=== PATIENT | female | born 1960 | race Caucasian/White ===

== ENCOUNTER 2019-12-01 18:24 | Observation (INO) ==
[2019-12-01] MEDS ORDERED: ASPIRIN CHEW 324 MG PO STA (18:46)
[2019-12-01] MEDS: NITROGLYCERIN SL 0.4 MG/TAB TAB SL PRN ×3 (18:54→19:43)
[2019-12-01] MEDS ORDERED: SODIUM CHLORIDE 0.9% 1000ML 1,000 ML IV SCH (19:00)
[2019-12-01 19:06] LABS: Basophils # (auto) 0.01 K/uL (0-0.2); Basophils % (auto) 0.1 %; Eosinophils # (auto) 0.14 K/uL (0-0.5); Eosinophils % (auto) 2.1 %; Hematocrit (blood only) 42.6 % (37-47); Hemoglobin 14.1 g/dL (12.0-16.0); Immature Granulocytes # (auto) 0.02 K/uL (0.00-0.02); Immature Granulocytes % (auto) 0.3 %; Lymphocytes % (auto) 29.7 %; Mean Corpuscular Hemoglobin 28.8 pg (25-34); Mean Corpuscular Hgb Conc 33.1 g/dL (32-36); Mean Corpuscular Volume 87.1 fL (80-100); Mean Platelet Volume 11.2 fL (7.4-10.4); Monocytes # (auto) 0.48 K/uL (0.11-0.59); Monocytes % (auto) 7.1 %; Neutrophils # (auto) 4.08 K/uL (1.4-6.5); Neutrophils % (auto) 60.7 %; Platelet Count 135 K/uL (130-400); RDW Coefficient of Variation 13.2 % (11.5-14.5); RDW Standard Deviation 42.2 fL (36.4-46.3); Red Blood Count 4.89 M/uL (4.2-5.4); White Blood Count 6.73 K/uL (4.8-10.8)
--- NOTE | 2019-12-01 19:23 | XRay Report ---
XR chest 1V portable HISTORY: Atypical Chest Pain COMPARISON: None. FINDINGS: The lungs are clear. Cardiac silhouette is normal in size. No pleural effusions. No pneumot horax. IMPRESSION: No acute process. ACT 112: Negative or not required by law. Electronically signed by: Mina Rojo M.D. 12/01/2019 7:22 PM
[2019-12-01 19:46] LABS: INR 1.1 (0.9-1.1); Partial Thromboplastin Ratio 0.9; Partial Thromboplastin Time 23.3 Seconds (21.0-31.0); Prothrombin Time 10.8 Seconds (9.0-12.0)
[2019-12-01 19:55] LABS: Alanine Aminotransferase 22 U/L (12-78); Albumin Level 3.5 gm/dl (3.4-5.0); Aspartate Aminotransferase 17 U/L (15-37); BUN Creatinine Ratio 26.6 (10-20); Blood Urea Nitrogen 20 mg/dl (7-18); Calcium 9.2 mg/dl (8.5-10.1); Carbon Dioxide 27 mmol/L (21-32); Chloride 111 mmol/L (98-107); Creatinine Clr Calc Pharmacy 75.4 ml/min; Est GFR (African American) 101.8; Est GFR (Non-African American) 87.9; Glucose 92 mg/dl (70-99); Lipase 181 U/L (73-393); Potassium 3.5 mmol/L (3.5-5.1); Sodium 143 mmol/L (136-145)
[2019-12-01 20:00] LABS: Albumin Globulin Ratio 1.1 (0.9-2); Alkaline Phosphatase 83 U/L (45-117); Bilirubin,Total 0.3 mg/dl (0.2-1); Globulin 3.3 gm/dl (2.5-4.0); Total Protein 6.8 gm/dl (6.4-8.2); Troponin I < 0.015 ng/ml (0-0.045)
--- NOTE | 2019-12-01 20:49 | Emergency Department Note ---
Entered by Ale Mueller acting as a scribe for History of Present Illness General Chief complaint: Cardiac Assessment Stated complaint: CHEST PAIN Time Seen by Provider: 12/01/19 18:34 Source: patient History of Present Illness Onset (ago): hour(s) (this morning) Location: chest Pain Consistency: + other (episodes) Maximum Pain Intensity: 6 Quality: + stabbing Relieved By: not by medication (Aspirin) Exacerbated By: not by movement (moving left arm, positional changes) and not by other (exertion, breathing deeply) Associated symptoms: + denies other symptoms (vomiting, diaphoresis, fever, chills, leg swelling, coughs, abdominal pain, or leg pain) The patient is a 59 year old white female w/ with no significant PMHx who presents to the ED w/ CC of an episode of chest pain beginning around 0730 this morning when she was driving to work. The patient reports that the pain is located in her upper left chest, shoulder and neck. She states that the stabbing pain is intermittent. She notes that the pain is becoming more frequent since its onset. She endorses some nausea but denies any vomiting. She denies any sweating. She denies that the pain worsens with exertion, positional changes, deep breathing, or movement of the left arm. She denies any fever, chills, leg swelling, coughs, abdominal pain, or leg pain. She notes that she took an aspirin around 1400 without significant relief in her symptoms. She denies any recent overuse of her left arm. She denies any history of clots or any significant cardiopulmonary history. She denies any recent long travel or hospitalizations. The patient denies that any first degree relatives had an [place] prior to the age of 65 but notes that her father had a heart attack at 67. She denies taking any control or hormone replacements. Home Medications Home Medications Medication Instructions Recorded Confirmed Type aspirin [Aspir-Low] 81 mg PO DAILY 12/01/19 12/01/19 History cetirizine [Zyrtec] 10 mg PO DAILY 12/01/19 12/01/19 History hydroxyzine HCl 12.5 mg PO HS PRN 12/01/19 12/01/19 History montelukast [Singulair] 10 mg PO HS 12/01/19 12/01/19 History multivitamin 1 tab PO DAILY 12/01/19 12/01/19 History dwvqbakeg-dtgzzif-hwkmgt-manga 2 tab PO DAILY 12/01/19 12/01/19 History Allergies Allergy/AdvReac Type Severity Reaction Status Date / Time No Known Allergies Allergy Unverified 12/01/19 20:23 Past Med/Surg History Medical History No significant past medical history Family History Father Myocardial infarction Social History Preferred Language: Syriac Communication Ability: Effective Plug Stitcher Required: No Beliefs That Will Affect Care: None marital status: Current Living Situation: Spouse current occupational status: employed Other Information That Helps Us Care for You: No Feels Safe at Home: Yes Safety Concerns: Afraid for Self Smoking Status: Never smoker Hx Alcohol Use: No Hx Substance Use: No Review of Systems See HPI for pertinent positives & negatives. and A total of 10 systems reviewed and were otherwise negative Physical Exam Vital Signs Vital Signs - 24 hr 12/01/19 18:29 12/01/19 18:55 12/01/19 19:05 Temperature 36.7 C Temperature Source Oral Pulse Rate 88 Pulse Rate [Apical] 88 83 Pulse Rhythm [Apical] Regular Regular Respiratory Rate 20 14 16 Respiratory Effort / Characteristics Non-Labored Non-Labored Spontaneous Non-Labored Spontaneous Respiratory Depth Normal Normal Normal Respiratory Pattern Blood Pressure 179/113 H Blood Pressure [Right Arm] 164/105 H 148/86 H Blood Pressure Mean 135 Blood Pressure Mean [Right Arm] 124 106 Pulse Oximetry 100 97 97 Oxygen Delivery Method Room Air Room Air Room Air Sepsis Recent Fever Within 48 Hours No Sepsis Action Taken by Nursing No Action Required 12/01/19 19:39 12/01/19 19:43 12/01/19 20:39 Temperature Temperature Source Pulse Rate Pulse Rate [Apical] 79 82 88 Pulse Rhythm [Apical] Regular Regular Regular Respiratory Rate 14 14 16 Respiratory Effort / Characteristics Non-Labored Spontaneous Non-Labored Spontaneous Non-Labored Spontaneous Respiratory Depth Normal Normal Normal Respiratory Pattern Regular Blood Pressure Blood Pressure [Right Arm] 158/92 H 141/91 H 144/94 H Blood Pressure Mean Blood Pressure Mean [Right Arm] 114 107 110 Pulse Oximetry 99 97 97 Oxygen Delivery Method Room Air Room Air Room Air Sepsis Recent Fever Within 48 Hours Sepsis Action Taken by Nursing 12/01/19 21:01 Temperature Temperature Source Pulse Rate Pulse Rate [Apical] 79 Pulse Rhythm [Apical] Regular Respiratory Rate 16 Respiratory Effort / Characteristics Non-Labored Spontaneous Respiratory Depth Normal Respiratory Pattern Regular Blood Pressure Blood Pressure [Right Arm] 157/93 H Blood Pressure Mean Blood Pressure Mean [Right Arm] 114 Pulse Oximetry 99 Oxygen Delivery Method Room Air Sepsis Recent Fever Within 48 Hours Sepsis Action Taken by Nursing GENERAL: Well appearing, well nourished, NAD, non-toxic. EYE EXAM: Normal conjunctiva. PERRL, no anisocoria and EOM's grossly intact w/o pain. OROPHARYNX: Moist mucous membranes. Grossly normal dentition. NECK: Supple, no nuchal rigidity, no adenopathy, non-tender. No signs of meningismus. LUNGS: Clear to auscultation. Normal chest wall mechanics. HEART: NSR, no MRG. CHEST: Mild reproducible left upper chest discomfort. ABDOMEN: Abdomen soft, non-tender, normo-active bowel sounds, no masses, no rebound or guarding. SKIN: No rashes and no bruising. UPPER EXTREMITIES: Upper extremities are grossly normal. No pain with ROM of left shouder. LOWER EXTREMITIES: No pitting edema. No calf pain. Negative Josy's sign. NEURO EXAM: A&O x3, cranial nerves II-XII grossly intact, normal speech, moves all 4 extremities on command w/o issue. Course Course 1840:The patient was evaluated in room B11B. A complete history and physical examination was performed. 1844: Continuous Cardiac Monitoring: An order was placed for continuous cardiac monitoring. The monitor shows a rate of 88 with normal sinus rhythm. 1945: Patients ED nursing team reports that the patients chest pain has improved with nitro. 2011: I updated the patient on her current lab and imaging results. We had a long conversation regarding admission for cardiac observation. Family will discuss options. Administered Medications Acetaminophen (Tylenol) 650 mg PO Q4H PRN PRN Reason: Pain or Fever Stop: 01/01/20 04:24 Last Admin: 12/02/19 08:25 Dose: 650 mg Documented by: [id number] Admin: 12/02/19 04:56 Dose: 650 mg Documented by: [id number] Amlodipine Besylate (Norvasc) 2.5 mg PO QAM [facility] Stop: 01/01/20 08:59 Last Admin: 12/02/19 08:54 Dose: 2.5 mg Documented by: [id number] Aspirin (Ecotrin Ectab) 81 mg PO DAILY [facility] Stop: 01/01/20 08:59 Last Admin: 12/02/19 07:41 Dose: Not Given Documented by: [id number] Cetirizine HCl (Zyrtec) 10 mg PO DAILY [facility] Stop: 01/01/20 08:59 Last Admin: 12/02/19 07:42 Dose: Not Given Documented by: [id number] Enoxaparin Sodium (Lovenox) 40 mg SQ QAM [facility] Stop: 01/01/20 08:59 Last Admin: 12/02/19 07:42 Dose: 40 mg Documented by: [id number] Potassium Chloride/Sodium Chloride (1/2 Nss + 20meq Kcl 1000ml) 20 meq in 1,000 mls @ 50 mls/hr IV .Q20H ONE Stop: 12/02/19 18:52 Last Admin: 12/02/19 00:03 Dose: 50 mls/hr Documented by: [id number] Montelukast Sodium (Singulair) 10 mg PO HS [facility] Stop: 12/31/19 22:52 Last Admin: 12/01/19 23:59 Dose: 10 mg Documented by: [id number] Multivitamins (Multivitamin Tab) 1 tab PO DAILY [facility] Stop: 01/01/20 08:59 Last Admin: 12/02/19 07:42 Dose: Not Given Documented by: [id number] Tramadol HCl (Ultram) 25 - 50 mg PO Q4H PRN PRN Reason: Pain Stop: 12/31/19 22:52 Last Admin: 12/01/19 23:59 Dose: 25 mg Documented by: [id number] Discontinued Medications Acetaminophen (Tylenol) 650 mg PO NOW STA Stop: 12/01/19 21:28 Last Admin: 12/01/19 22:54 Dose: Not Given Documented by: [id number] Acetaminophen (Tylenol) Confirm Administered Dose 650 mg .ROUTE .STK-MED ONE Stop: 12/01/19 21:47 Last Admin: 12/01/19 21:48 Dose: 650 mg Documented by: [id number] Aspirin (Aspirin) 324 mg PO NOW STA Stop: 12/01/19 18:47 Last Admin: 12/01/19 18:54 Dose: 324 mg Documented by: [id number] Sodium Chloride (Nss 1000ml) 1,000 mls @ 999 mls/hr IV .Q1H1M PAWEL Stop: 12/01/19 20:00 Last Infusion: 12/01/19 20:39 Dose: 0 mls/hr Documented by: [id number] Admin: 12/01/19 18:55 Dose: 999 mls/hr Documented by: [id number] Lisinopril (Zestril) 2.5 mg PO ONE ONE Stop: 12/01/19 21:00 Last Admin: 12/01/19 23:37 Dose: Not Given Documented by: [id number] Nitroglycerin (Nitrostat) 0.4 mg SL UD PRN PRN Reason: Chest Pain Stop: 12/31/19 18:45 Last Admin: 12/01/19 19:43 Dose: 0.4 mg Documented by: [id number] Admin: 12/01/19 19:38 Dose: 0.4 mg Documented by: [id number] Admin: 12/01/19 18:54 Dose: 0.4 mg Documented by: [id number] Medical Decision Making Differential Diagnosis Differential diagnoses includes but is not limited to acute coronary syndrome, myocardial infarction, pericarditis, pulmonary embolus, aortic dissection, pneumonia, pneumothorax, musculoskeletal, shingles, esophageal. Medical Records Attestation: I reviewed the patient's medical records. Home Medications Current Medication List: was personally reviewed by me Laboratory Data Attestation: I reviewed the patient's lab results. Result diagrams: 12/02/19 04:35 12/02/19 04:35 Lab Results 12/01/19 12/01/19 12/01/19 Range/Units 19:26 19:26 19:26 PT 10.8 (9.0-12.0) Seconds INR 1.1 (0.9-1.1) APTT 23.3 (21.0-31.0) Seconds PTT Ratio 0.9 Sodium 143 (136-145) mmol/L Potassium 3.5 (3.5-5.1) mmol/L Chloride 111 H (98-107) mmol/L Carbon Dioxide 27 (21-32) mmol/L Anion Gap 5.0 (3-11) BUN 20 H (7-18) mg/dl Creatinine 0.75 (0.6-1.2) mg/dl Est Cr Clr Drug Dosing 75.4 ml/min Est GFR ( Amer) 101.8 Est GFR (Non-Af Amer) 87.9 BUN/Creatinine Ratio 26.6 H (10-20) Glucose 92 (70-99) mg/dl Calcium 9.2 (8.5-10.1) mg/dl Total Bilirubin 0.3 (0.2-1) mg/dl AST 17 (15-37) U/L ALT 22 (12-78) U/L Alkaline Phosphatase 83 (45-117) U/L Troponin I < 0.015 (0-0.045) ng/ml Total Protein 6.8 (6.4-8.2) gm/dl Albumin 3.5 (3.4-5.0) gm/dl Globulin 3.3 (2.5-4.0) gm/dl Albumin/Globulin Ratio 1.1 (0.9-2) Lipase 181 (73-393) U/L TSH 5.960 H (0.300-4.500) uIu/ml Free T4 1.09 (0.8-1.6) ng/dl Imaging Data Radiologist's Impression: Radiology results as stated below per my review and the radiologist's interpretation: XR chest 1V portable HISTORY: Atypical Chest Pain COMPARISON: None. FINDINGS: The lungs are clear. Cardiac silhouette is normal in size. No pleural effusions. No pneumothorax. IMPRESSION: No acute process. ACT 112: Negative or not required by law. Electronically signed by: Mina Rojo M.D. 12/01/2019 7:22 PM ECG Data Attestation: I personally reviewed and interpreted this ECG as follows: Indication: + chest pain Rate (beats per minute): 85 ECG Intervals/blocks: + Normal QRS, + Normal QT and + Normal VA ECG [place]: + Normal ECG ST segments: no ST depression and no ST elevation Blood Pressure Blood Pressure Findings: Elevated blood pressure Blood Pressure Disposition: Referred to patients primary care provider MDM Narrative The patient is a 59 year old white female w/ with no significant PMHx who presents to the ED w/ CC of an episode of chest pain beginning around 0730 this morning when she was driving to work. Patient was seen and evaluated the bedside. The patient was complaining of some left-sided chest pain that did radiate to her arm and jaw. Occasional nausea. No diaphoresis or vomiting. The patient does have family history of heart attack in her father at age 67. Patient does take a baby aspirin. Patient did take this morning. The patient was given nitro and aspirin. Patient did have improvement of her pain with nitro. She did receive several more. Patient's history and physical exam not consistent with aneurysm or dissection. Chest is clear. Patient's blood work is fairly unremarkable troponin is nondetectable. I did offer admission for observation and continuing to trend her cardiac enzymes versus very close outpatient referral. The patient agreed with observation and continue to trend her enzymes. I did speak the on-call hospitalist agreed to further evaluate treat the patient. Patient was admitted to medicine service. Impression & Plan Atypical chest pain Discharge Plan Visit Data *Final* Discharge Date/Time: 12/01/19 22:29 Chief Complaint: Cardiac Assessment Stated Complaint: CHEST PAIN ED Provider: Yoav Soriano Discharge Problem: Atypical chest pain Patient Disposition: Admitted As Inpatient Discharge Instructions Interventions: ED Discharge Assessment Last Done: 12/01/19 22:29 The john's documentation has been prepared under my direction and personally reviewed by me in its entirety. I confirm that the note above accurately reflects all work, treatment, procedures, and medical decision making performed by me.
[2019-12-01] MEDS ORDERED: ACETAMINOPHEN 325 MG TAB PO STA (21:27)
--- NOTE | 2019-12-01 21:28 | History & Physical Report ---
Date of Service December 01, 2019 Assessment & Plan (1) Chest pain: Likely musculoskeletal given reproducibility Situational hypertension Hypothyroidism, TSH slightly elevated OBS PCU Analgesia Follow troponin, TTE Monitor BP, initiate lisinopril if with persistent BP elevation and/or evidence of chronic BP elevation on TTE DVT prophylaxis Lovenox subcu Full code History of Present Illness Chief Complaint: Chest pain Primary Care Provider: KWADWO Fritz History obtained from patient, family, and records. Medical history significant for hypothyroidism. Patient woke up this morning with left-sided chest pain going to her shoulder and neck, described as sharp. Some shortness of breath, no cough. No rash, fever, chills. No recollection of unusual exertion, recent trauma. No unusual stress at home. Relief of discomfort after aspirin and nitroglycerin administration at the ER. Medical History as above Surgical History : Partial hysterectomy Family History : Heart disease Personal/Social history : Non-smoker, no EtOH intake, hairdresser Allergies Allergy/AdvReac Type Severity Reaction Status Date / Time No Known Allergies Allergy Unverified 12/01/19 20:23 Home Medications Home Medications Medication Instructions Recorded Confirmed Type aspirin [Aspir-Low] 81 mg PO DAILY 12/01/19 12/01/19 History cetirizine [Zyrtec] 10 mg PO DAILY 12/01/19 12/01/19 History hydroxyzine HCl 12.5 mg PO HS PRN 12/01/19 12/01/19 History montelukast [Singulair] 10 mg PO HS 12/01/19 12/01/19 History multivitamin 1 tab PO DAILY 12/01/19 12/01/19 History jeznbhpfk-qxsjvlu-dkifhj-manga 2 tab PO DAILY 12/01/19 12/01/19 History Past Med/Surg History Medical History No significant past medical history Family History Father Myocardial infarction Social History Preferred Language: Maori Communication Ability: Effective Riveter 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 Beliefs That Will Affect Care: None marital status: Current Living Situation: Spouse current occupational status: employed Other Information That Helps Us Care for You: No Feels Safe at Home: Yes Safety Concerns: Afraid for Self Smoking Status: Never smoker Hx Alcohol Use: No Hx Substance Use: No Review of Systems Review of Systems: As per HPI, all 10 systems reviewed, all other ROS negative Physical Exam Physical Exam: GENERAL: Comfortable, slightly anxious, pleasant, obese, no respiratory distress SKIN: Normal color, warm HEENT: [place] palpebral conjunctivae, no ptosis, dry buccal mucosa NECK : Supple, short neck, no tenderness CHEST : CTA, left-sided chest wall tenderness HEART : RRR, no obvious murmurs ABDOMEN: Some distention, nontender EXTREMITIES : Bilateral LE swelling (chronic), no tenderness, no other conspicuous deformities noted NEUROLOGIC : Coherent, no facial asymmetry, no other gross focality Results & Data Vital Signs (Past 12 Hours) Vital Signs Temp Pulse Pulse Resp BP BP Pulse Ox 12/01/19 21:01 79 16 157/93 H 99 12/01/19 20:39 88 16 144/94 H 97 12/01/19 19:43 82 14 141/91 H 97 12/01/19 19:39 79 14 158/92 H 99 12/01/19 19:05 83 16 148/86 H 97 12/01/19 18:55 88 14 164/105 H 97 12/01/19 18:29 36.7 C 88 20 179/113 H 100 Laboratory Results Laboratory Results WBC 6.73 K/uL (4.8-10.8) 12/01/19 Unknown RBC 4.89 M/uL (4.2-5.4) 12/01/19 Unknown Hgb 14.1 g/dL (12.0-16.0) 12/01/19 Unknown Hct 42.6 % (37-47) 12/01/19 Unknown MCV 87.1 fL (80-100) 12/01/19 Unknown MCH 28.8 pg (25-34) 12/01/19 Unknown MCHC 33.1 g/dL (32-36) 12/01/19 Unknown RDW Std Deviation 42.2 fL (36.4-46.3) 12/01/19 Unknown RDW Coeff of Kirill 13.2 % (11.5-14.5) 12/01/19 Unknown Plt Count 135 K/uL (130-400) 12/01/19 Unknown MPV 11.2 fL (7.4-10.4) H 12/01/19 Unknown Immature Gran % (Auto) 0.3 % 12/01/19 Unknown Neut % (Auto) 60.7 % 12/01/19 Unknown Lymph % (Auto) 29.7 % 12/01/19 Unknown [place] % (Auto) 7.1 % 12/01/19 Unknown Eos % (Auto) 2.1 % 12/01/19 Unknown Baso % (Auto) 0.1 % 12/01/19 Unknown Immature Gran # (Auto) 0.02 K/uL (0.00-0.02) 12/01/19 Unknown Neut # (Auto) 4.08 K/uL (1.4-6.5) 12/01/19 Unknown Lymph # (Auto) 2.00 K/uL (1.2-3.4) 12/01/19 Unknown [place] # (Auto) 0.48 K/uL (0.11-0.59) 12/01/19 Unknown Eos # (Auto) 0.14 K/uL (0-0.5) 12/01/19 Unknown Baso # (Auto) 0.01 K/uL (0-0.2) 12/01/19 Unknown PT Cancelled 12/01/19 Unknown INR Cancelled 12/01/19 Unknown APTT Cancelled 12/01/19 Unknown PTT Ratio Cancelled 12/01/19 Unknown Sodium Cancelled 12/01/19 Unknown Potassium Cancelled 12/01/19 Unknown Chloride Cancelled 12/01/19 Unknown Carbon Dioxide Cancelled 12/01/19 Unknown Anion Gap Cancelled 12/01/19 Unknown BUN Cancelled 12/01/19 Unknown Creatinine Cancelled 12/01/19 Unknown Est Cr Clr Drug Dosing Cancelled 12/01/19 Unknown Est GFR ( Amer) Cancelled 12/01/19 Unknown Est GFR (Non-Af Amer) Cancelled 12/01/19 Unknown BUN/Creatinine Ratio Cancelled 12/01/19 Unknown Glucose Cancelled 12/01/19 Unknown Calcium Cancelled 12/01/19 Unknown Total Bilirubin Cancelled 12/01/19 Unknown AST Cancelled 12/01/19 Unknown ALT Cancelled 12/01/19 Unknown Alkaline Phosphatase Cancelled 12/01/19 Unknown Troponin I Cancelled 12/01/19 Unknown Total Protein Cancelled 12/01/19 Unknown Albumin Cancelled 12/01/19 Unknown Globulin Cancelled 12/01/19 Unknown Albumin/Globulin Ratio Cancelled 12/01/19 Unknown Lipase Cancelled 12/01/19 Unknown Diagnostic Findings Chest x-ray : No acute process EKG as per my interpretation : Rate 85, NSR, normal axis, incomplete RBBB, T wave flattening anteroseptal leads
[2019-12-01] MEDS ORDERED: ACETAMINOPHEN 325 MG TAB ONE (21:46)
[2019-12-01 22:13] LABS: Thyroid Stimulating Hormone 5.96 uIu/ml (0.300-4.500)
[2019-12-01 22:26] LABS: T4 Free Thyroxine 1.09 ng/dl (0.8-1.6)
[2019-12-01] MEDS ORDERED: TRAMADOL HCL 50 MG TABLET PO PRN (22:53)
[2019-12-01] MEDS ORDERED: MoRPHine SULFATE 4 MG/ML 1 ML CARP\\VIAL IV PRN (22:53)
[2019-12-01] MEDS ORDERED: NITROGLYCERIN SL 0.4 MG/TAB TAB SL PRN (22:53)
[2019-12-01] MEDS ORDERED: SODIUM CHLOR 0.45% + 20MEQ KCL 20 MEQ/1,000 ML BAG IV ONE (22:53)
[2019-12-01] MEDS ORDERED: PROMETHAZINE HCL 12.5 MG in SODIUM CHLORIDE 0.9% 50 ML IV PRN (22:53)
[2019-12-01] MEDS ORDERED: LORazepam 0.25 MG/0.5 ML VIAL IV PRN (22:53)
[2019-12-01] MEDS ORDERED: MONTELUKAST SODIUM 10 MG TABLET PO SCH (22:53)
[2019-12-02 04:53] LABS: Basophils # (auto) 0.01 K/uL (0-0.2); Basophils % (auto) 0.2 %; Eosinophils # (auto) 0.15 K/uL (0-0.5); Eosinophils % (auto) 2.7 %; Hemoglobin 12.3 g/dL (12.0-16.0); Immature Granulocytes # (auto) 0.01 K/uL (0.00-0.02); Immature Granulocytes % (auto) 0.2 %; Lymphocytes # (auto) 2.25 K/uL (1.2-3.4); Lymphocytes % (auto) 40.8 %; Mean Corpuscular Hemoglobin 29.1 pg (25-34); Mean Corpuscular Hgb Conc 33.2 g/dL (32-36); Mean Corpuscular Volume 87.5 fL (80-100); Mean Platelet Volume 10.1 fL (7.4-10.4); Monocytes # (auto) 0.39 K/uL (0.11-0.59); Monocytes % (auto) 7.1 %; Platelet Count 179 K/uL (130-400); RDW Coefficient of Variation 13.3 % (11.5-14.5); RDW Standard Deviation 42.9 fL (36.4-46.3); Red Blood Count 4.23 M/uL (4.2-5.4); White Blood Count 5.51 K/uL (4.8-10.8)
[2019-12-02] MEDS: ACETAMINOPHEN 325 MG TAB PO PRN ×2 (04:56→08:25)
[2019-12-02 05:03] LABS: BUN Creatinine Ratio 23.6 (10-20); Blood Urea Nitrogen 17 mg/dl (7-18); Calcium 8.3 mg/dl (8.5-10.1); Carbon Dioxide 28 mmol/L (21-32); Chloride 112 mmol/L (98-107); Creatinine Clr Calc Pharmacy 78.6 ml/min; Est GFR (Non-African American) 92.3; Glucose 83 mg/dl (70-99); Potassium 3.9 mmol/L (3.5-5.1); Sodium 143 mmol/L (136-145)
[2019-12-02 05:08] LABS: Chol HDL Ratio 3; Cholesterol 148 mg/dl (0-200); HDL Cholesterol 53 mg/dl; LDL Cholesterol Calculated 79 mg/dl; Triglycerides 80 mg/dl (0-150); Troponin I < 0.015 ng/ml (0-0.045); VLDL Cholesterol 16 mg/dl
[2019-12-02] MEDS ORDERED: AMLODIPINE BESYLATE 5 MG TAB PO SCH ×2 (09:00→16:45)
[2019-12-02] MEDS ORDERED: CETIRIZINE HCL 10 MG TABLET PO SCH (09:00)
[2019-12-02] MEDS ORDERED: ENOXAPARIN INJ 40 MG/0.4 ML SYR SQ SCH (09:00)
[2019-12-02] MEDS ORDERED: MULTIVITAMIN TAB PO SCH (09:00)
[2019-12-02] MEDS ORDERED: ASPIRIN 81 MG ECTAB PO SCH (09:00)
[2019-12-02 11:21] LABS: D Dimer 190 ug/L FEU (0-500)
--- NOTE | 2019-12-02 16:28 | Hospitalist Progress Note ---
Date of Service December 02, 2019 Assessment & Plan (1) Chest pain: Likely musculoskeletal etiology --Troponins x3 EKG no signs of acute infarct or ischemia Echocardiogram no segmental wall motion abnormalities in the left ventricle, normal LV systolic function EF 55 to 60%, with 1 diastolic dysfunction, no significant valvular pathology --Chest pain resolved Chest pain reproducible per admitting physician --Advised not to perform any strenuous activities or lifting until follow-up with primary care physician this week Hypertension --Admitted with elevated blood pressure up to 179/113 Patient given amlodipine total of 5 mg, pressure improving to 135/82 --- Continue amlodipine 5 mg daily Monitor blood pressure as an outpatient Elevated TSH --TSH 5.9, free T4 1.09 --Repeat thyroid function tests in 4 to 6 weeks Case discussed in detail and at length with patient and her significant other All questions were answered Patient advised to follow-up with primary care physician next week for reevaluation They are understanding, comfortable, agreeable with the plan of care Subjective Follow-up for chest pain Seen resting in bed, comfortable, not in distress States she has chest pain has resolved Improved with Tylenol Denies dizziness, headache, shortness of breath, palpitations, nausea, sweating No other symptoms Reevaluated in the afternoon Remains comfortable, states she feels fine States she is ready for discharge Review of Systems Review of Systems: All systems reviewed & are unremarkable except as noted in HPI & below Physical Exam Physical Exam: General- oriented x 3, not in distress, speaks in sentences with no effort or accessory muscle use Head- atraumatic Eyes- PERRL, EOMI, anicteric ENT- oropharynx clear Neck- supple, no JVD, no adenopathy, no thyromegaly; carotids +2/2, no bruits appreciated Lungs- clear to auscultation bilaterally, no rales/wheezes Heart- normal rate, regular rhythm; no murmur, no gallop, no rub appreciated Left chest wall nontender to palpation Abdomen- normal bowel sounds, nondistended, soft, nontender, no masses or hepatosplenomegaly Extremities- no pretibial edema, no calf tenderness; peripheral pulses intact Neuro- alert, oriented x 3; CN 2-12 grossly intact; motor 5/5 bilaterally;sensation 100% on all extremities; no other gross focal neurologic deficits Skin- warm & dry Results & Data ([facility]) Vital Signs (Past 12 Hours) Vital Signs Temp Pulse Pulse Resp BP BP Pulse Ox 12/02/19 15:46 36.6 C 72 20 155/95 H 97 12/02/19 11:34 36.7 C 72 18 144/89 H 98 12/02/19 08:03 36.5 C 73 18 157/90 H 97 12/02/19 05:07 36.7 C 66 18 135/82 96 Laboratory Results Laboratory Results - last 24 hr 12/01/19 12/01/19 12/01/19 19:26 19:26 19:26 WBC RBC Hgb Hct MCV MCH MCHC RDW Std Deviation RDW Coeff of Kirill Plt Count MPV Immature Gran % (Auto) Neut % (Auto) Lymph % (Auto) [place] % (Auto) Eos % (Auto) Baso % (Auto) Immature Gran # (Auto) Neut # (Auto) Lymph # (Auto) [place] # (Auto) Eos # (Auto) Baso # (Auto) PT 10.8 INR 1.1 APTT 23.3 PTT Ratio 0.9 D-Dimer Sodium 143 Potassium 3.5 Chloride 111 H Carbon Dioxide 27 Anion Gap 5.0 BUN 20 H Creatinine 0.75 Est Cr Clr Drug Dosing 75.4 Est GFR ( Amer) 101.8 Est GFR (Non-Af Amer) 87.9 BUN/Creatinine Ratio 26.6 H Glucose 92 Calcium 9.2 Total Bilirubin 0.3 AST 17 ALT 22 Alkaline Phosphatase 83 Troponin I < 0.015 Total Protein 6.8 Albumin 3.5 Globulin 3.3 Albumin/Globulin Ratio 1.1 Triglycerides Cholesterol LDL Cholesterol, Calc VLDL Cholesterol, Calc HDL Cholesterol Cholesterol/HDL Ratio Lipase 181 TSH 5.960 H Free T4 1.09 12/01/19 12/01/19 12/01/19 22:58 Unknown Unknown WBC 6.73 RBC 4.89 Hgb 14.1 Hct 42.6 MCV 87.1 MCH 28.8 MCHC 33.1 RDW Std Deviation 42.2 RDW Coeff of Kirill 13.2 Plt Count 135 MPV 11.2 H Immature Gran % (Auto) 0.3 Neut % (Auto) 60.7 Lymph % (Auto) 29.7 [place] % (Auto) 7.1 Eos % (Auto) 2.1 Baso % (Auto) 0.1 Immature Gran # (Auto) 0.02 Neut # (Auto) 4.08 Lymph # (Auto) 2.00 [place] # (Auto) 0.48 Eos # (Auto) 0.14 Baso # (Auto) 0.01 PT Cancelled INR Cancelled APTT Cancelled PTT Ratio Cancelled D-Dimer Sodium Potassium Chloride Carbon Dioxide Anion Gap BUN Creatinine Est Cr Clr Drug Dosing Est GFR ( Amer) Est GFR (Non-Af Amer) BUN/Creatinine Ratio Glucose Calcium Total Bilirubin AST ALT Alkaline Phosphatase Troponin I < 0.015 Total Protein Albumin Globulin Albumin/Globulin Ratio Triglycerides Cholesterol LDL Cholesterol, Calc VLDL Cholesterol, Calc HDL Cholesterol Cholesterol/HDL Ratio Lipase TSH Free T4 12/01/19 12/02/19 12/02/19 Unknown 04:35 04:35 WBC 5.51 RBC 4.23 Hgb 12.3 Hct 37.0 MCV 87.5 MCH 29.1 MCHC 33.2 RDW Std Deviation 42.9 RDW Coeff of Kirill 13.3 Plt Count 179 MPV 10.1 Immature Gran % (Auto) 0.2 Neut % (Auto) 49.0 Lymph % (Auto) 40.8 [place] % (Auto) 7.1 Eos % (Auto) 2.7 Baso % (Auto) 0.2 Immature Gran # (Auto) 0.01 Neut # (Auto) 2.70 Lymph # (Auto) 2.25 [place] # (Auto) 0.39 Eos # (Auto) 0.15 Baso # (Auto) 0.01 PT INR APTT PTT Ratio D-Dimer Sodium Cancelled 143 Potassium Cancelled 3.9 Chloride Cancelled 112 H Carbon Dioxide Cancelled 28 Anion Gap Cancelled 3.0 BUN Cancelled 17 Creatinine Cancelled 0.72 Est Cr Clr Drug Dosing Cancelled 78.6 Est GFR ( Amer) Cancelled 107.0 Est GFR (Non-Af Amer) Cancelled 92.3 BUN/Creatinine Ratio Cancelled 23.6 H Glucose Cancelled 83 Calcium Cancelled 8.3 L Total Bilirubin Cancelled AST Cancelled ALT Cancelled Alkaline Phosphatase Cancelled Troponin I Cancelled < 0.015 Total Protein Cancelled Albumin Cancelled Globulin Cancelled Albumin/Globulin Ratio Cancelled Triglycerides 80 Cholesterol 148 LDL Cholesterol, Calc 79 VLDL Cholesterol, Calc 16 HDL Cholesterol 53 Cholesterol/HDL Ratio 3 Lipase Cancelled TSH Free T4 12/02/19 10:56 WBC RBC Hgb Hct MCV MCH MCHC RDW Std Deviation RDW Coeff of Kirill Plt Count MPV Immature Gran % (Auto) Neut % (Auto) Lymph % (Auto) [place] % (Auto) Eos % (Auto) Baso % (Auto) Immature Gran # (Auto) Neut # (Auto) Lymph # (Auto) [place] # (Auto) Eos # (Auto) Baso # (Auto) PT INR APTT PTT Ratio D-Dimer 190 Sodium Potassium Chloride Carbon Dioxide Anion Gap BUN Creatinine Est Cr Clr Drug Dosing Est GFR ( Amer) Est GFR (Non-Af Amer) BUN/Creatinine Ratio Glucose Calcium Total Bilirubin AST ALT Alkaline Phosphatase Troponin I Total Protein Albumin Globulin Albumin/Globulin Ratio Triglycerides Cholesterol LDL Cholesterol, Calc VLDL Cholesterol, Calc HDL Cholesterol Cholesterol/HDL Ratio Lipase TSH Free T4
[2019-12-02] MEDS ORDERED: AMLODIPINE BESYLATE 5 MG TAB PO ONE (16:45)
--- NOTE | 2019-12-02 17:17 | Electrocardiogram Report ---
Test Reason : Blood Pressure : / mmHG Vent. Rate : 085 BPM Atrial Rate : 085 BPM P-R Int : 168 ms QRS Dur : 080 ms QT Int : 362 ms P-R-T Axes : 072 031 057 degrees QTc Int : 430 ms Normal sinus rhythm Low voltage QRS Borderline ECG No previous ECGs available Confirmed by Stanley Bonilla ([id number]) on 12/02/2019 5:17:02 PM Referred By: REFERRED SELF Confirmed By:Pieter Bonilla
--- NOTE | 2019-12-02 17:24 | Electrocardiogram Report ---
Test Reason : Blood Pressure : / mmHG Vent. Rate : 066 BPM Atrial Rate : 066 BPM P-R Int : 174 ms QRS Dur : 080 ms QT Int : 402 ms P-R-T Axes : 064 026 047 degrees QTc Int : 421 ms Normal sinus rhythm Normal ECG When compared with ECG of 01-DEC-2019 18:39, (unconfirmed) No significant change was found Confirmed by Stanley Bonilla ([id number]) on 12/02/2019 5:23:54 PM Referred By: REFERRED SELF Confirmed By:Pieter Bonilla
--- NOTE | 2019-12-02 19:09 | Discharge Summary ---
Date of Service December 02, 2019 Admission HPI Per Admitting Provider History obtained from patient, family, and records. Medical history significant for hypothyroidism. Patient woke up this morning with left-sided chest pain going to her shoulder and neck, described as sharp. Some shortness of breath, no cough. No rash, fever, chills. No recollection of unusual exertion, recent trauma. No unusual stress at home. Relief of discomfort after aspirin and nitroglycerin administration at the ER. Medical History as above Surgical History : Partial hysterectomy Family History : Heart disease Personal/Social history : Non-smoker, no EtOH intake, hairdresser Admission Exam Per Admitting Provider GENERAL: Comfortable, slightly anxious, pleasant, obese, no respiratory distress SKIN: Normal color, warm HEENT: [place] palpebral conjunctivae, no ptosis, dry buccal mucosa NECK : Supple, short neck, no tenderness CHEST : CTA, left-sided chest wall tenderness HEART : RRR, no obvious murmurs ABDOMEN: Some distention, nontender EXTREMITIES : Bilateral LE swelling (chronic), no tenderness, no other conspicuous deformities noted NEUROLOGIC : Coherent, no facial asymmetry, no other gross focality Principal Diagnosis Chest pain, acute coronary syndrome ruled out; hypertension Discharge Exam General- oriented x 3, not in distress, speaks in sentences with no effort or accessory muscle use Head- atraumatic Eyes- PERRL, EOMI, anicteric ENT- oropharynx clear Neck- supple, no JVD, no adenopathy, no thyromegaly; carotids +2/2, no bruits appreciated Lungs- clear to auscultation bilaterally, no rales/wheezes Heart- normal rate, regular rhythm; no murmur, no gallop, no rub appreciated Left chest wall nontender to palpation Abdomen- normal bowel sounds, nondistended, soft, nontender, no masses or hepatosplenomegaly Extremities- no pretibial edema, no calf tenderness; peripheral pulses intact Neuro- alert, oriented x 3; CN 2-12 grossly intact; motor 5/5 bilaterally;sensation 100% on all extremities; no other gross focal neurologic deficits Skin- warm & dry Discharge Data Allergies Allergy/AdvReac Type Severity Reaction Status Date / Time No Known Allergies Allergy Unverified 12/01/19 20:23 Consultations 12/01/19 20:56 ED Decision to Admit Stat Hospital Course (1) Chest pain: Likely musculoskeletal etiology --Patient lifted grill at home over the weekend, also works as a hairdresser --Troponins x3 negative EKG no signs of acute infarct or ischemia Echocardiogram: No segmental wall motion abnormalities in the left ventricle, normal LV systolic function EF 55 to 60%, grade 1 diastolic dysfunction, no si gnificant valvular pathology --Chest pain resolved Chest pain also noted to be reproducible per admitting physician --Advised not to perform any strenuous activities or lifting until follow-up with primary care physician this week Hypertension --Admitted with elevated blood pressure up to 179/113 Patient given amlodipine total of 5 mg, pressure improving to 135/82 --- Continue amlodipine 5 mg daily Monitor blood pressure as an outpatient Elevated TSH --TSH 5.9, free T4 1.09 --Repeat thyroid function tests in 4 to 6 weeks Case discussed in detail and at length with patient and her significant other All questions were answered Patient advised to follow-up with primary care physician next week for reevaluation They are understanding, comfortable, agreeable with the plan of care Total Time Total Time Spent Total Time Spent (In Minutes): 40 MINUTES Discharge Plan Discharge Items Patient Disposition: Home - Self-Care Reason For Visit: CHEST PAIN Discharge Diagnosis: Chest pain, Acute coronary syndrome ruled out; Hypertension Activity: As commented below Activity Comment: No heavy exertion until follow-up with primary care physician Lifting: Wait until after follow-up appointment Exercise/Sports: Wait until after follow-up appointment Driving/Machine Use: No driving if you are having chest pain Non-emergency contact: Primary Care Provider Call non-emergency contact if: you have any medication questions, your symptoms worsen, your pain is not controlled, your pain is worsening, your pain is concerning for you and you have a fever Diet: Heart Healthy Addtl Attending Provider Instructions: Your new medication is for blood pressure control, called amlodipine 5 mg by mouth once a day. Please follow low-fat , low-salt diet. Please follow-up with your primary care physician within 1 week. Please call primary care physician or return to the emergency room immediately if with recurrence of symptoms. Pending Studies at Discharge: No Stand-Alone Forms: [employer], Smoking Cessation Medications and DC Order Prescriptions: New amlodipine [Norvasc] 5 mg Tablet 5 mg PO QAM 30 Days Qty: 30 RF: 2 Continued multivitamin Tablet 1 tab PO DAILY RF: 0 cetirizine [Zyrtec] 10 mg Tablet 10 mg PO DAILY RF: 0 aspirin [Aspir-Low] 81 mg Tablet,Delayed Release (Dr/Ec) 81 mg PO DAILY RF: 0 montelukast [Singulair] 10 mg Tablet 10 mg PO HS RF: 0 hydroxyzine HCl 25 mg tablet 12.5 mg PO HS PRN (Reason: Sleep) RF: 0 [id number]-manga 2 tab PO DAILY RF: 0 Discharge Orders: Discharge Order (Routine); Ordered 12/02/19 Ordered By: Shayan Loco Admission Data Admit Date/Time: 12/01/19 21:30 Attending Provider: Shayan Loco Admit Provider: Shayan Loco Primary Care Provider: PCP,NO Other Providers: Rikki Robison Other Interventions: Discharge Summary Assessment (RN) Last Done: 12/02/19 16:33 DC Date/Time DO NOT enter until pt leaves facility: 12/02/19 17:03
[2019-12-03] MEDS ORDERED: AMLODIPINE BESYLATE 5 MG TAB PO SCH (09:00)
== END 2019-12-02 17:03 | disposition home or self-care (01) ==
LOC: ED 18:24 → 2S 18:24 → SUATTDRO 21:30 → 2S 22:29